=== PATIENT | male | born 1985 ===

== ENCOUNTER 2017-07-20 12:35 | Emergency (ER) | payer MEDICAID ==
[2017-07-20 12:55] VITALS: RESP 18
[2017-07-20] MEDS ORDERED: Sodium Chloride 0.9% 1,000 ML IV STA ×2 (13:05→15:59)
--- NOTE | 2017-07-20 13:11 | ED PDOC ---
HPI: General Adult Time Seen by Provider: 07/20/17 12:59 Chief Complaint (Nursing): Flu-like Symptoms Chief Complaint (Provider): Flu-like Symptoms History Per: Patient History/Exam Limitations: no limitations Onset/Duration Of Symptoms: Days (x3) Current Symptoms Are (Timing): Still Present Additional Complaint(s): 31 y/o male with no significant pmhx presents to the ED for evaluation of body aches, vomiting, diarrhea, and abdominal pain x 2 days. Patient denies any consumption of food that could have caused stomach upset. He denies recent travel or known sick contacts. No associated chest pain, cough, shortness of breath, sore throat or dysuria. States he is unsure of fever as he did not measure his temp. Patient cannot keep down any liquids or solids. PMD: None Past Medical History Reviewed: Historical Data, Nursing Documentation, Vital Signs Vital Signs: Last Vital Signs Temp 98 F 07/20/17 12:49 Pulse 103 H 07/20/17 12:49 Resp 18 07/20/17 12:49 BP 137/83 07/20/17 12:49 Pulse Ox 99 07/20/17 17:25 - Medical History PMH: No Chronic Diseases - Surgical History Other surgeries: Jaw surgery - Family History Family History: States: No Known Family Hx - Living Arrangements Living Arrangements: With Family - Social History Current smoker - smoking cessation education provided: No Alcohol: Occasional Drugs: Denies - Home Medications Home Medications: Ambulatory Orders Medication Instructions Recorded Dicyclomine [Bentyl] 10 mg PO QID PRN #20 cap 07/20/17 Ondansetron [Zofran Odt] 4 mg PO ASDIR PRN #10 odt 07/20/17 - Allergies Allergies/Adverse Reactions: Allergies Allergy/AdvReac Type Severity Reaction Status Date / Time Sulfa (Sulfonamide Allergy RASH Verified 07/20/17 12:55 Antibiotics) Review of Systems ROS Statement: Except As Marked, All Systems Reviewed And Found Negative Constitutional: Positive for: Other (body aches) Cardiovascular: Negative for: Chest Pain Respiratory: Negative for: Cough, Shortness of Breath Gastrointestinal: Positive for: Nausea, Vomiting, Abdominal Pain, Diarrhea. Negative for: Constipation Neurological: Negative for: Headache, Dizziness Physical Exam - Reviewed Nursing Documentation Reviewed: Yes Vital Signs Reviewed: Yes - Physical Exam Appears: Positive for: Well, Non-toxic, Uncomfortable Head Exam: Positive for: ATRAUMATIC, NORMAL INSPECTION, NORMOCEPHALIC Skin: Positive for: Normal Color. Negative for: Rash Eye Exam: Positive for: Normal appearance ENT: Positive for: Normal ENT Inspection Neck: Positive for: Normal Cardiovascular/Chest: Positive for: Regular Rate, Rhythm. Negative for: Murmur Respiratory: Positive for: Normal Breath Sounds. Negative for: Respiratory Distress Gastrointestinal/Abdominal: Positive for: Tenderness (LLQ, RLQ), Distended ( slight). Negative for: Guarding, Rebound Back: Negative for: L CVA Tenderness, R CVA Tenderness Extremity: Positive for: Normal ROM Neurologic/Psych: Positive for: Alert, Oriented - Laboratory Results Result Diagrams: 07/20/17 13:25 07/20/17 13:25 Urine dip results: Positive for: Ketones (trace), Protein. Negative for: Leukocyte Esterase, Blood, Nitrate, Glucose, Bilirubin - ECG O2 Sat by Pulse Oximetry: 99 (RA) Pulse Ox Interpretation: Normal - Other Rad CT abd and pelvis with IV contrast X-Ray: Read By Radiologist X-Ray Interpretation: see below Medical Decision Making Medical Decision Makin:05 Initial Impression: 31 y/o male with vomiting, diarrhea and abd pain Plan: --CT abdomen and pelvis w/ IV contrast --CMP --Urine dipstick --CBC --Sodium Chloride 0.9% 1,000 mls/hr --Toradol 30mg IM --Zofran Inj 4mg IV --Blood culture --Influenza A B --Reevaluation CT: FINDINGS: LOWER THORAX: Minor passive/dependent type atelectasis both posterior lower lung zones. . No infiltrate effusion or basilar pneumothorax. . Heart size within range of normal. There is a small hiatal hernia with slight wall thickening of the distal esophagus. LIVER: Liver is enlarged measuring nearly 20 cm in CC dimension. Mild diffuse fatty hepatic infiltration. No obvious hepatic mass collection or calcification. Portal and splenic veins are opacified. No significant intrahepatic biliary ductal dilatation. GALLBLADDER AND BILE DUCTS: Gallbladder incompletely distended. No evidence of definitive radio-opaque intraluminal gallbladder calculi the the PANCREAS: No pancreatic masses collections or calcifications. Pancreatic duct is visible lobe does not appear significantly dilated SPLEEN: Spleen exhibits normal size and attenuation pattern without mass collection or calcification. ADRENALS: No adrenal lesions. KIDNEYS AND URETERS: Kidneys demonstrate symmetric nephrograms. No evidence of nephrolithiasis or hydronephrosis. BLADDER: Urinary bladder is physiologically distended incompletely distended which in part accounts for thick-walled appearance. Muscular hypertrophy may contribute. The possibility of a cystitis in a male patient would be less likely in the absence of a pertinent clinical history however not completely excluded. REPRODUCTIVE: Unremarkable as visualized. APPENDIX: The appendix is retrocecal in location with somewhat tortuous appearance however no evidence of acute appendicitis. No periappendiceal inflammatory changes. Appendix best seen on coronal image number [id number]. BOWEL: Evaluation of the bowel is limited due to the lack of oral contrast material. Stomach is incompletely distended which in part accounts for thick-walled appearance. There are multiple on minimally distended fluid-filled loops of small bowel suggesting at enteritis compatible with this patient's history of diarrhea. Stool and air seen throughout the large bowel. No definitive evidence of abnormal mural wall thickening. Mild hepatomegaly and mild fatty infiltration. PERITONEUM: No gross free intraperitoneal air. There are no free or loculated fluid collections. . There is a small fat containing umbilical hernia. LYMPH NODES: Unremarkable. No enlarged lymph nodes. VASCULATURE: No evidence of abdominal aortic or iliac artery aneurysms. BONES: There is a straightening of the normal lumbar lordosis however vertebral bodies otherwise exhibit normal alignment. Facets normally aligned. No acute compression fractures. No significant degenerative spondylosis. OTHER FINDINGS: None. IMPRESSION: Multiple fluid-filled minimally distended loops of small bowel which may represent a enteritis and consistent with this patient's history of a diarrheal illness. No evidence of acute mechanical bowel obstruction. Patient is aware of all diagnostic testing results, all questions answered. Patient states he feels better after meds given. He was able to tolerate water without further emesis. Second fluid bolus administered. Patient discharged with prescriptions for Zofran and Bentyl. Dietary instructions provided. Patient was referred to clinic for follow-up and is aware he can return to ED any time if acutely worse Scribe Attestation: Documented by Pavan Cox, acting as a scribe for Natalie Mtz PA-C. Provider Scribe Attestation: All medical record entries made by the Scribe were at my direction and personally dictated by me. I have reviewed the chart and agree that the record accurately reflects my personal performance of the history, physical exam, medical decision making, and the department course for this patient. I have also personally directed, reviewed, and agree with the discharge instructions and disposition. Disposition - Clinical Impression Clinical Impression: Gastroenteritis - Patient ED Disposition Is Patient to be Admitted: No Counseled Patient/Family Regarding: Studies Performed, Diagnosis, Need For Followup, Rx Given - Disposition Referrals: [facility] [Outside] Disposition: Routine/Home Disposition Time: 17:23 Condition: IMPROVED Additional Instructions: Take prescription as directed. Follow clear liquid diet instructions and advance to solids as tolerated. Follow-up with clinic in 2-3 days or return anytime to ED if acutely worse. Prescriptions: Dicyclomine [Bentyl] 10 mg PO QID PRN #20 cap PRN Reason: Gi Distress Ondansetron [Zofran Odt] 4 mg PO ASDIR PRN #10 odt PRN Reason: Nausea/Vomiting Instructions: Clear Liquid Diet, Gastroenteritis (ED) Forms: [employer] (Wolof)
[2017-07-20 13:41] LABS: BASO % 0.2 % (0.0-2.0); HEMOGLOBIN 16.2 g/dL (12.0-18.0); LYMPH # 0.2 K/uL (1.0-4.3); LYMPH % 1.9 % (20.0-40.0); MEAN CELL VOLUME 91.2 fl (80.0-94.0); MEAN CORPUSCULAR HEMOGLOBIN 31.5 pg (27.0-31.0); MEAN CORPUSCULAR HGB CONC 34.5 g/dL (33.0-37.0); MEAN PLATELET VOLUME 9.6 fl (7.2-11.7); MONO # 0.5 K/uL (0.0-0.8); MONO % 4.1 % (0.0-10.0); NEUT # 11.5 K/uL (1.8-7.0); NEUT % 93.8 % (50.0-75.0); NRBC % 0.2 % (0.0-0.0); PLATELET COUNT 231 K/uL (130-400); RBC 5.15 Mil/uL (4.40-5.90); RED CELL DISTRIBUTION WIDTH 13.9 % (11.5-14.5); WHITE BLOOD COUNT 12.2 K/uL (4.8-10.8)
[2017-07-20 13:52] LABS: ALB/GLOB RATIO 1.3 (1.0-2.1); ALBUMIN 4.4 g/dL (3.5-5.0); ALT/SGPT 48 U/L (21-72); AST/SGOT 35 U/L (17-59); BLOOD UREA NITROGEN 12 mg/dl (9-20); CALCIUM 9.4 mg/dL (8.4-10.2); GFR AFRICAN-AMERICAN > 60; GFR NON-AFRICAN AMERICAN > 60
[2017-07-20] MEDS ORDERED: Iohexol 300 100 ML IJ ONE (14:13)
[2017-07-20 14:21] LABS: BANDS 1 % (0-2); LYMPHOCYTE 3 % (20-50); MONOCYTE 3 % (0-10); NEUTROPHIL 93 % (42-75); PLATELET ESTIMATE NORMAL (NORMAL); TOTAL CELLS COUNTED 100
--- NOTE | 2017-07-20 15:10 | CT ---
PROCEDURE: CT scan abdomen and pelvis dated 07/20/2017 HISTORY: Body aches with abdominal pain diarrhea and vomiting. . COMPARISON: None. TECHNIQUE: Contiguous axial images of the abdomen and pelvis of performed all following intravenous injection of approximately 100 cc Visipaque 320 contrast material. Additional 2 dimensional sagittal and coronal reformats generated. Radiation dose: Total exam DLP = This CT exam was performed using one or more of the following dose reduction techniques: Automated exposure control, adjustment of the mA and/or kV according to patient size, and/or use of iterative reconstruction technique. FINDINGS: LOWER THORAX: Minor passive/dependent type atelectasis both posterior lower lung zones. . No infiltrate effusion or basilar pneumothorax. . Heart size within range of normal. There is a small hiatal hernia with slight wall thickening of the distal esophagus. LIVER: Liver is enlarged measuring nearly 20 cm in CC dimension. Mild diffuse fatty hepatic infiltration. No obvious hepatic mass collection or calcification. Portal and splenic veins are opacified. No significant intrahepatic biliary ductal dilatation. GALLBLADDER AND BILE DUCTS: Gallbladder incompletely distended. No evidence of definitive radio-opaque intraluminal gallbladder calculi the the PANCREAS: No pancreatic masses collections or calcifications. Pancreatic duct is visible lobe does not appear significantly dilated SPLEEN: Spleen exhibits normal size and attenuation pattern without mass collection or calcification. ADRENALS: No adrenal lesions. KIDNEYS AND URETERS: Kidneys demonstrate symmetric nephrograms. No evidence of nephrolithiasis or hydronephrosis. BLADDER: Urinary bladder is physiologically distended incompletely distended which in part accounts for thick-walled appearance. Muscular hypertrophy may contribute. The possibility of a cystitis in a male patient would be less likely in the absence of a pertinent clinical history however not completely excluded. REPRODUCTIVE: Unremarkable as visualized APPENDIX: The appendix is retrocecal in location with somewhat tortuous appearance however no evidence of acute appendicitis. No periappendiceal inflammatory changes. Appendix best seen on coronal image number [id number]. BOWEL: Evaluation of the bowel is limited due to the lack of oral contrast material. Stomach is incompletely distended which in part accounts for thick-walled appearance. There are multiple on minimally distended fluid-filled loops of small bowel suggesting at enteritis compatible with this patient's history of diarrhea. Stool and air seen throughout the large bowel. No definitive evidence of abnormal mural wall thickening. Mild hepatomegaly and mild fatty infiltration. PERITONEUM: No gross free intraperitoneal air. There are no free or loculated fluid collections. . There is a small fat containing umbilical hernia. LYMPH NODES: Unremarkable. No enlarged lymph nodes. VASCULATURE: No evidence of abdominal aortic or iliac artery aneurysms. BONES: There is a straightening of the normal lumbar lordosis however vertebral bodies otherwise exhibit normal alignment. Facets normally aligned. No acute compression fractures. No significant degenerative spondylosis. OTHER FINDINGS: None. IMPRESSION: Multiple fluid-filled minimally distended loops of small bowel which may represent a enteritis and consistent with this patient's history of a diarrheal illness. No evidence of acute mechanical bowel obstruction.
[2017-07-20 18:26] VITALS: BP 137/86; PULSE 86; TEMP 98.1; O2SAT 100
== END 2017-07-20 18:26 | disposition home or self-care (01) ==
LOC: H.ER 12:35
DX: K52.9 Noninfective gastroenteritis and colitis, unspecified (principal); K44.9 Diaphragmatic hernia without obstruction or gangrene
CPT/HCPCS: 74177; 80053; 83690; 85025; 87040; 87804; 96374; 96375; 99283; J1885; J2405; J7040; Q9967

== ENCOUNTER 2017-10-24 19:38 | Emergency (ER) | payer MEDICAID ==
[2017-10-24 20:31] VITALS: BP 126/67; PULSE 63; RESP 16; TEMP 98.1; O2SAT 98
--- NOTE | 2017-10-24 21:36 | ED PDOC ---
Lower Extremity Pain/Injury Time Seen by Provider: 10/24/17 21:30 Chief Complaint (Nursing): Lower Extremity Problem/Injury Chief Complaint (Provider): Lower Extremity Problem/Injury History Per: Patient History/Exam Limitations: no limitations Onset/Duration Of Symptoms: Days Current Symptoms Are (Timing): Still Present Additional Complaint(s): 32 y/o male presents to the ED complaining of left foot pain, onset yesterday. Patient reports twisting his left foot while playing basketball yesterday. Denies prior fracture, fall and taking medications prior to arrival. PMD: None Provided Past Medical History Reviewed: Historical Data, Nursing Documentation, Vital Signs Vital Signs: Last Vital Signs Temp 98.1 F 10/24/17 20:31 Pulse 63 10/24/17 20:31 Resp 16 10/24/17 20:31 BP 126/67 10/24/17 20:31 Pulse Ox 98 10/24/17 20:31 - Medical History PMH: No Chronic Diseases - Surgical History Surgical History: No Surg Hx - Family History Family History: States: Unknown Family Hx - Home Medications Home Medications: Ambulatory Orders Medication Instructions Recorded Dicyclomine [Bentyl] 10 mg PO QID PRN #20 cap 07/20/17 Ondansetron [Zofran Odt] 4 mg PO ASDIR PRN #10 odt 07/20/17 Naproxen 375 mg PO Q8 PRN #21 tablet 10/24/17 - Allergies Allergies/Adverse Reactions: Allergies Allergy/AdvReac Type Severity Reaction Status Date / Time Sulfa (Sulfonamide Allergy RASH Verified 07/20/17 12:55 Antibiotics) Review of Systems ROS Statement: Except As Marked, All Systems Reviewed And Found Negative Musculoskeletal: Positive for: Foot Pain (left) Physical Exam - Reviewed Nursing Documentation Reviewed: Yes Vital Signs Reviewed: Yes - Physical Exam Appears: Positive for: No Acute Distress Head Exam: Positive for: ATRAUMATIC Skin: Positive for: Normal Color Eye Exam: Positive for: Normal appearance Neck: Positive for: Normal Cardiovascular/Chest: Negative for: Bradycardia, Tachycardia Respiratory: Negative for: Accessory Muscle Use, Respiratory Distress Extremity: Positive for: Normal ROM (Full ROM of hand ), Tenderness (Tenerness with palpation of thenar prominence. ) Neurologic/Psych: Positive for: Alert, Oriented. Negative for: Motor/Sensory Deficits - ECG O2 Sat by Pulse Oximetry: 98 (RA) Pulse Ox Interpretation: Normal - Progress ED Course And Treament: XRY OF FOOT: NO FX PATIENT REFUSED MOTRIN IN ED. NAPROXEN 500 MG X 1 DOSE Medical Decision Making Medical Decision Making: Time: 2121 Plan: -- Motrin 600 mg PO -- Foot Left 3 Views XR Scribe Attestation: Documented by Luma Medeiros, acting as a scribe for Jovani Castellon PA-C. Provider Scribe Attestation: All medical record entries made by the Scribe were at my direction and personally dictated by me. I have reviewed the chart and agree that the record accurately reflects my personal performance of the history, physical exam, medical decision making, and the department course for this patient. I have also personally directed, reviewed, and agree with the discharge instructions and disposition. Disposition - Clinical Impression Clinical Impression: Foot sprain - Patient ED Disposition Is Patient to be Admitted: No - Disposition Referrals: [facility] [Outside] Disposition: Routine/Home Disposition Time: 22:24 Condition: FAIR Prescriptions: Naproxen 375 mg PO Q8 PRN #21 tablet PRN Reason: Pain, Moderate (4-7) Instructions: Foot Sprain (DC) Forms: [facility] ED School/Work Excuse
[2017-10-24] MEDS ORDERED: Naproxen 500 MG TAB PO STA (22:22)
[2017-10-24] MEDS ORDERED: Naproxen 500 MG TAB PO ONE (22:30)
--- NOTE | 2017-10-25 10:29 | RAD ---
Date of service: 10/24/2017 PROCEDURE: Left Foot Radiographs. HISTORY: foot injury COMPARISON: None. FINDINGS: BONES: No acute fracture or destructive bony lesion identified. JOINTS: No subluxation or dislocation appreciated throughout. SOFT TISSUES: Normal. OTHER FINDINGS: None. IMPRESSION: Unremarkable left foot radiographs.
== END 2017-10-24 23:03 | disposition home or self-care (01) ==
LOC: H.ER 19:38
DX: S93.602A Unspecified sprain of left foot, initial encounter (principal); X50.9XXA Other and unspecified overexertion or strenuous movements or postures, initial encounter; Y92.310 Basketball court as the place of occurrence of the external cause

== ENCOUNTER 2018-04-08 12:08 | Emergency (ER) | payer MEDICAID ==
[2018-04-08 12:46] VITALS: O2SAT 99
[2018-04-08 12:52] VITALS: BMI 26.6
--- NOTE | 2018-04-08 13:13 | ED PDOC ---
HPI: Influenza Time Seen by Provider: 04/08/18 12:44 Chief Complaint: Flu-like Symptoms Chief Complaint (Provider): Flu-like Symptoms History Per: Patient Exam Limitations: no limitations Onset/Duration Of Symptoms: Hrs Additional complaint(s):: Patient is a 32 y/o male with no significant PMHx who presents to the ED for evaluation of flu-like symptoms, onset this morning. Patient reports to have fallen asleep last night with a mild cough. Today when the patient woke up he claims to have experienced body wide pain. Patient states he felt unwell and while at the custodial he had a fever of 104. Patient attempted to eat an orange but had three episodes of nausea and vomiting. Patient admits to being able to tolerate liquids, has a mild sore throat, headache, and chest pain with cough. Patient denies radiation of pain into arm of jaw, nasal congestion, ear pain, diarrhea, abdominal pain, palpitations, or dizziness. Patient has not taken any medication for symptoms. Of note, patient has not received flu vaccine. PCP: Dr. Kimi More Past Medical History Reviewed: Historical Data, Nursing Documentation, Vital Signs Vital Signs: Last Vital Signs Temp 101.1 F H 04/08/18 13:00 Pulse 100 H 04/08/18 12:44 Resp 20 04/08/18 12:44 BP 158/81 H 04/08/18 12:44 Pulse Ox 99 04/08/18 12:44 - Medical History PMH: No Chronic Diseases - Surgical History Surgical History: No Surg Hx - Family History Family History: States: Unknown Family Hx - Immunization History Hx Influenza Vaccination: No - Home Medications Home Medications: Ambulatory Orders Medication Instructions Recorded Acetaminophen [Tylenol] 650 mg PO Q6 PRN 7 Days capsule 04/08/18 Ibuprofen [Motrin Tab] 600 mg PO Q6 PRN 7 Days tab 04/08/18 Oseltamivir Phosphate [Tamiflu] 75 mg PO BID 5 Days capsule 04/08/18 - Allergies Allergies/Adverse Reactions: Allergies Allergy/AdvReac Type Severity Reaction Status Date / Time Sulfa (Sulfonamide Allergy RASH Verified 04/08/18 12:44 Antibiotics) Review of Systems ROS Statement: Except As Marked, All Systems Reviewed And Found Negative Constitutional: Positive for: Fever, Other (Body wide pain w/o radiation to jaw or arms) ENT: Positive for: Throat Pain (mild soreness). Negative for: Ear Pain, Nose Congestion Cardiovascular: Positive for: Chest Pain. Negative for: Palpitations Respiratory: Positive for: Cough (mild) Gastrointestinal: Positive for: Nausea, Vomiting. Negative for: Abdominal Pain, Diarrhea Neurological: Positive for: Headache. Negative for: Dizziness Physical Exam - Reviewed Nursing Documentation Reviewed: Yes Vital Signs Reviewed: Yes - Physical Exam Appears: Positive for: Uncomfortable Head Exam: Positive for: ATRAUMATIC, NORMAL INSPECTION, NORMOCEPHALIC ENT: Positive for: TM Is/Are (normal with mild erythema bilaterally), Pharyngeal Erythema (mild). Negative for: Tonsillar Exudate, Tonsillar Swelling, Other (lesions in ear canal) Cardiovascular/Chest: Positive for: Regular Rate, Rhythm Respiratory: Positive for: CNT, Normal Breath Sounds Gastrointestinal/Abdominal: Positive for: Normal Exam, Soft Neurologic/Psych: Positive for: Alert, Oriented Medical Decision Making Medical Decision Making: Time: 1253 Plan: Tamiflu 75 mg PO Tylenol 650 mg PO Influenza A B PO Challenge Reevaluation Time: 1400 Patient was reevaluated and found to have a temperature of 101. Patient still complains of body aches. Patient was given one dosage of Ibuprofen 600 mg PO. Patient tolerated PO challenge with several glasses of water and juice w/o nausea or vomiting. Time: 1455 Patient reevaluated and is resting comfortably. Vital signs are stable and fever diffused. Patient reports to feel slightly better but continues to have body aches and quivers. Patient states she is not sure what she will do since it is freezing outside. Patient advised to rest and drink fluids in the warmth of the custodial. Return instruction given. Scribe Attestation: Documented by Wes Alcaraz, acting as a scribe for Kendra ONEAL Provider Scribe Attestation: All medical record entries made by the Scribe were at my direction and personally dictated by me. I have reviewed the chart and agree that the record accurately reflects my personal performance of the history, physical exam, medical decision making, and the department course for this patient. I have also personally directed, reviewed, and agree with the discharge instructions and disposition. - ECG O2 Sat by Pulse Oximetry: 99 Disposition - Clinical Impression Clinical Impression: Influenza A - Disposition Referrals: [facility] [Outside] Condition: STABLE Additional Instructions: Take Tamiflu as prescribed to help reduce your symptoms. Avoid close contact with others as you are very contagious. Take Ibuprofen and tylenol for fevers and body aches. Rest as much as possible. Drink lots of fluids. Return to ER if you develop shortness of breath or are unable to tolerate fluids. Prescriptions: Acetaminophen [Tylenol] 650 mg PO Q6 PRN 7 Days capsule PRN Reason: Fever >100.4 F Ibuprofen [Motrin Tab] 600 mg PO Q6 PRN 7 Days tab PRN Reason: Pain, Moderate (4-7) Oseltamivir Phosphate [Tamiflu] 75 mg PO BID 5 Days capsule Instructions: Flu, Adult (DC) Forms: [employer] (Malay)
[2018-04-08 15:06] VITALS: TEMP 99.3
[2018-04-08 15:47] VITALS: BP 131/76; PULSE 89; RESP 19
== END 2018-04-08 15:47 | disposition home or self-care (01) ==
LOC: H.ER 12:08
DX: J09.X2 Influenza due to identified novel influenza A virus with other respiratory manifestations (principal)

== ENCOUNTER 2018-08-09 22:01 | Emergency (ER) | payer SELFPAY ==
[2018-08-09 22:01] VITALS: BMI 26.6
[2018-08-09] MEDS ORDERED: DiphenhydrAMINE 50 mg/ml Inj ONE (22:24)
[2018-08-10 01:53] LABS: BARBITURATES, UR NEGATIVE (NEGATIVE); BENZODIAZEPINES, UR NEGATIVE (NEGATIVE); OPIATES, UR NEGATIVE (NEGATIVE); PHENCYCLIDINE, UR NEGATIVE (NEGATIVE)
--- NOTE | 2018-08-10 02:28 | ED PDOC ---
HPI: Psych/Substance Abuse Time Seen by Provider: 08/09/18 22:30 Chief Complaint (Nursing): Substance Abuse ED Caveat: Acuity of Condition History Per: Patient, EMS History/Exam Limitations: intoxication Current Symptoms Are (Timing): Still Present Additional Complaint(s): 32 year old with unknown PMHx presenting with alcohol and drug intoxication. EMS reports that he was vomiting on himself. Past Medical History Reviewed: Historical Data, Nursing Documentation, Vital Signs, Unable To Obtain Vital Signs: Last Vital Signs Temp 98.7 F 08/09/18 23:00 Pulse 89 08/10/18 01:00 Resp 18 08/10/18 01:00 BP 116/51 L 08/10/18 01:00 Pulse Ox 95 08/10/18 01:00 Primary Care Provider: FAMILY PROVIDER,NO - Family History Family History: States: Unknown Family Hx - Immunization History Hx Influenza Vaccination: No - Home Medications Home Medications: Ambulatory Orders Medication Instructions Recorded Acetaminophen [Tylenol] 650 mg PO Q6 PRN 7 Days capsule 04/08/18 Ibuprofen [Motrin Tab] 600 mg PO Q6 PRN 7 Days tab 04/08/18 Oseltamivir Phosphate [Tamiflu] 75 mg PO BID 5 Days capsule 04/08/18 - Allergies Allergies/Adverse Reactions: Allergies Allergy/AdvReac Type Severity Reaction Status Date / Time Sulfa (Sulfonamide Allergy RASH Verified 04/08/18 12:44 Antibiotics) Review of Systems Review Of Systems: ROS cannot be obtained secondary to pt's inabilty to answer questions. Physical Exam - Reviewed Nursing Documentation Reviewed: Yes Vital Signs Reviewed: Yes - Physical Exam Appears: Negative for: Well (Covered in vomitus) Head Exam: Negative for: ATRAUMATIC (Abrasions to forehead) Eye Exam: Positive for: Normal appearance, EOMI, PERRL ENT: Positive for: Normal ENT Inspection Neck: Positive for: Normal, Supple Cardiovascular/Chest: Positive for: Regular Rate, Rhythm, Chest Non Tender Respiratory: Positive for: Normal Breath Sounds Gastrointestinal/Abdominal: Positive for: Normal Exam, Soft. Negative for: Tenderness Extremity: Positive for: Normal ROM Neurological/Psych: Positive for: Awake, Alert, Symmetric/Intact Strength, Other (Appears under the influence). Negative for: Oriented, Motor/Sensory Deficits - ECG O2 Sat by Pulse Oximetry: 95 Pulse Ox Interpretation: Normal Medical Decision Making Medical Decision MakinPM Patient presenting with intoxication Patient is not oriented at this time, interrupting his own care, attempting to stand but patient is at very high risk of fall, attempting to spit at staff, is posing a danger to himself and others, requiring both chemical and physical sedation. 130AM Patient resting comfortably Disposition - Disposition
[2018-08-10] MEDS ORDERED: DiphenhydrAMINE 50 mg/ml Inj IM STA (03:36)
[2018-08-10 04:18] VITALS: O2SAT 99
--- NOTE | 2018-08-10 07:09 | CT ---
Date of service: 08/10/2018 PROCEDURE: CT HEAD WITHOUT CONTRAST. HISTORY: possible head injury, intox COMPARISON: None available. TECHNIQUE: Axial computed tomography images were obtained through the head/brain without intravenous contrast. Radiation dose: Total exam DLP = 1166.04 mGy-cm. This CT exam was performed using one or more of the following dose reduction techniques: Automated exposure control, adjustment of the mA and/or kV according to patient size, and/or use of iterative reconstruction technique. FINDINGS: HEMORRHAGE: No intracranial hemorrhage. BRAIN: No mass effect or edema. No atrophy or chronic microvascular ischemic changes. VENTRICLES: Unremarkable. No hydrocephalus. CALVARIUM: Unremarkable. PARANASAL SINUSES: Unremarkable as visualized. No significant inflammatory changes. MASTOID AIR CELLS: Unremarkable as visualized. No inflammatory changes. OTHER FINDINGS: None. IMPRESSION: No evidence of acute intracranial hemorrhage mass effect or midline shift. No evidence of skull fracture. Preliminary report was submitted by [facility] Radiology contains concordant findings.
--- NOTE | 2018-08-10 15:09 | ED PDOC ---
- ECG O2 Sat by Pulse Oximetry: 99 Medical Decision Making Medical Decision Makin Patient care endorsed from Dr. Solitario to this provider pending clinical sobriety. 1529 Upon provider reevaluation, patient is medically stable. Awake, alert, and attempting to get out of bed. Patient will be discharged home after repeat vitals if within normal limits. Gait is stable. He denies any SI, HI, or head injury. Clinical Impression: alcohol intoxication Scribe Attestation: Documented by Jina Packer and Xuan Jean, acting as a scribe for Aris Redd MD. Provider Scribe Attestation: All medical record entries made by the Scribe were at my direction and personally dictated by me. I have reviewed the chart and agree that the record accurately reflects my personal performance of the history, physical exam, medical decision making, and the department course for this patient. I have also personally directed, reviewed, and agree with the discharge instructions and disposition. Disposition Counseled Patient/Family Regarding: Studies Performed, Diagnosis, Need For Followup - Clinical Impression Clinical Impression: Alcohol intoxication - POA Present On Arrival: None - Disposition Referrals: [facility] [Outside] Disposition: Routine/Home Disposition Time: 15:20 Condition: IMPROVED Additional Instructions: follow up with your doctor/clinic in 1-2 days return to the ED with any worsening or concerning symptoms Instructions: Effects of Alcohol on Your Health Forms: [employer] (Serbian)
--- NOTE | 2018-08-10 15:10 | ED PDOC ---
- ECG O2 Sat by Pulse Oximetry: 99 Disposition - Disposition Forms: [facility] (Yoruba)
[2018-08-10 16:03] VITALS: BP 129/60; TEMP 98.2
[2018-08-10 16:13] VITALS: PULSE 64; RESP 18
== END 2018-08-10 16:11 | disposition home or self-care (01) ==
LOC: H.ER 22:01
DX: F10.129 Alcohol abuse with intoxication, unspecified (principal); Z88.2 Allergy status to sulfonamides
CPT/HCPCS: 70450; 96372; 99285; G0480; J1200; J1630; J2060